=== PATIENT | female | born 1985 | race Caucasian/White ===

== ENCOUNTER 2016-09-26 12:24 | Emergency (ER) | payer OTHER ==
[~2016-09-26] VITALS: Ht 162.6 cm; Wt 68.9 kg
[~2016-09-26 12:24] MED LIST: BACLOFEN10 M1 PO; DOXYCYCLINE MO100 MG PO; FIORICET 325 MG1 TAB PO; IBUPROFEN600 M1 PO; PERCOCET 325 MG1 TA2 PO
[2016-09-26 12:30] VITALS: BP 128/83
--- NOTE | 2016-09-26 13:06 | ED GENERAL ADULT ---
History of Present Illness General Chief Complaint: General Adult Stated Complaint: BACK APAIN/BLOOD IN STOOL Source: patient Exam Limitations: no limitations Vital Signs & Intake/Output Vital Signs & Intake/Output Vital Signs Date Time Temp Pulse Resp B/P Pulse O2 O2 Flow FiO2 Ox Delivery Rate 09/26 1230 96.8 103 16 128/83 96 Room Air Allergies Coded Allergies: doxycycline (Severe, SWELLING 11/11/15) Reconcile Medications Alprazolam 0.5 MG TABLET 1 TAB PO BIDP PRN ANXIETY (Reported) Escitalopram Oxalate 20 MG TABLET 1 TAB PO DAILY DEPRESSION (Reported) Triage Note: PT STATES SHE WOKE THIS AM AND WAS HAVING LEFT LOWER BACK PAIN THAT COMES AND GOES. PT STATES WHEN SHE BREATHS IN IT HURTS WORSE. PT STATES SHE MOVED HER BOWELS AND SHE HAD A LOT OF BLOOD IN HER STOOL. PT STATES THIS HAS NEVER HAPPEND TO HER BEFORE. PT STATES SHE HAS BEEN CONSTIPATED PRIOR TO THIS EPISODE. Triage Nurses Notes Reviewed? yes Onset: Abrupt Duration: constant Timing: single episode today Injury Environment: home Severity: severe Severity Numbers: 7 : No Patient currently breastfeeds: No HPI: Patient is a 31-year-old female with a past medical history of mood disorder and anxiety who presents emergency room saying that today she woke up in her normal state of health patient had an acute onset of left-sided back pain that is made worse with deep inhalation and lumbar spine movements. Patient states that she' s had back pain in the past however nothing significant. Patient denies any mechanism of injury. Patient also states that she has a history of constipation however nothing in the last 2 weeks and states that today after having a bowel movement she noted bright red blood passing. Patient has not had a bowel movement since. Denies any history of bright red blood from passing stool. Denies any fever, chills, lightheaded sensation chest pain cough nausea vomiting abdominal pain vaginal bleeding vaginal discharge dysuria or hematuria. Patient did not take any medications for symptoms (AUDREY HANSEN,LAUREN) Past History Travel History Traveled to [place] past 21 day No Medical History Any Pertinent Medical History? 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 No (LAUREN CAVAZOS) Review of Systems Review of Systems Constitutional: Reports: no symptoms. EENTM: Reports: no symptoms. Respiratory: Reports: no symptoms. Cardiovascular: Reports: no symptoms. GI: Reports: see HPI, bloody stool. Denies: abdominal pain. Genitourinary: Reports: see HPI. Musculoskeletal: Reports: see HPI, back pain. Skin: Reports: no symptoms. Neurological/Psychological: Reports: no symptoms. Hematologic/Endocrine: Reports: no symptoms. Immunologic/Allergic: Reports: no symptoms. All Other Systems: Reviewed and Negative (LAUREN CAVAZOS) Physical Exam Physical Exam General Appearance: no apparent distress, alert Comments: Well-developed well-nourished person in no acute distress HEENT: Normal EENT exam, . Neck: Supple, no lymphadenopathy, normal range of motion without pain or tenderness Back: Normal inspection, left lateral paralumbar muscular point tenderness noted , mild decreased active range of motion noted with pain upon side bending and flexion Cardiovascular: Regular rate and rhythms no murmurs rubs or gallops, normal JVP Respiratory: Chest nontender. No respiratory distress.breath sounds clear to auscultation bilaterally Abdomen: Soft, nontender nondistended, no appreciable organomegaly. Normal bowel sounds. No ascites Extremity: No edema, no calf tenderness to palpation, normal and equal pulses. Bilateral lower extremity myotomes dermatomes intact Neuro: Alert oriented x3, motor sensory normal, Skin: No appreciable rash on exposed skin, skin is warm and dry. Psych: Mood and affect is normal, memory and judgment is normal. note that the rectal exam was performed by Kate Mccoy PA-C and which she states that there was normal external rectal exam no hemorrhoids rectal tone was intact patient had brown stool noted in heme negative stool fecal No blood Core Measures ACS in differential dx? No CVA/TIA Diagnosis: No Severe Sepsis Present: No Septic Shock Present: No (LAUREN CAVAZOS) Progress Differential Diagnoses I considered the following diagnoses in my evaluation of the patient: [Lumbar strain, kidney stone, diverticulosis, diverticulitis, GI bleed, hemorrhoids, anal fissure, rectal abscess, small bowel obstruction] Plan of Care: Orders Procedure Date/time Status URINE 09/26 1252 Complete URINALYSIS 09/26 1252 Complete Laboratory Tests 09/26/16 1255: Urine Color YEL, Urine Clarity CLEAR, Urine pH 7.0, Ur Specific Purdy 1.020, Urine Protein NEG, Urine Ketones NEG, Urine Nitrite NEG, Urine Bilirubin NEG, Urine Urobilinogen 0.2, Ur Leukocyte Esterase NEG, Ur Microscopic EXAM NOT REQUIRED, Urine Hemoglobin NEG, Urine Glucose NEG, Urine Test NEGATIVE Currently on examination patient was in no apparent distress. Nontender abdomen noted on exam. Patient had unremarkable rectal exam and no current active bleeding noted. Patient had unremarkable urine analysis and had reproducible pain upon lumbar spine movements. Upon discharge patient looks well no apparent distress and will comply with discharge instructions and had no questions (LAUREN CAVAZOS) Initial ED EKG: none (LAUREN CAVAZOS) Departure Departure Disposition: HOME OR SELF CARE Condition: Stable Clinical Impression Primary Impression: Low back strain Secondary Impressions: Blood in stool Referrals: PAIGE HICKMAN DO (PCP/Family) AUSTIN WILLETT,SINDI Yuen Additional Instructions: As discussed begin icing the area directly 20 minutes every 2 hours Begin the prescription and ketorolac for pain and inflammation prescription is waiting at [facility] pharmacy. Follow-up with your primary care doctor if your back pain still continues in 5 days. If symptoms worsen return to emergency room. If bleeding reoccurs follow up and establish gastrin drawl is Dr. AVILA. Departure Forms: Customer Survey General Discharge Information (LAUREN CAVAZOS) PA/TRANSPORTATION DRIVER Co-Sign Statement Statement: ED Attending supervision documentation- [] I saw and evaluated the patient. I have also reviewed all the pertinent lab results and diagnostic results. I agree with the findings and the plan of care as documented in the PA's/TRANSPORTATION DRIVER's documentation. x I have reviewed the ED Record and agree with the PA's/TRANSPORTATION DRIVER's documentation. [] Additions or exceptions (if any) to the PAs/TRANSPORTATION DRIVER's note and plan are summarized below: [] (TAMIA WILLETT,TIN) Critical Care Note Critical Care Note Critical Care Time: non-applicable (LAUREN CAVAZOS)
[2016-09-26] MEDS ORDERED: KETOROLAC TROME10 M1 PO (13:39)
[2016-09-26] MEDS ORDERED: ALPRAZOLAM0.5 M4 PO (13:47)
[2016-09-26] MEDS ORDERED: ESCITALOPRAM OX20 MG PO (13:47)
== END 2016-09-26 14:26 ==
LOC: ERH 12:24
DX: S39.012A Strain of muscle, fascia and tendon of lower back, initial encounter (principal); K92.1 Melena; X58.XXXA Exposure to other specified factors, initial encounter
CPT/HCPCS: 81003; 81025; 96372; J1885

== ENCOUNTER 2016-11-12 08:47 | Emergency (ER) | payer OTHER ==
[~2016-11-12] VITALS: Ht 165.1 cm; Wt 69.4 kg
[~2016-11-12 08:47] MED LIST changes: +ALPRAZOLAM0.5 M4 PO; +ESCITALOPRAM OX20 MG PO; +KETOROLAC TROME10 M1 PO
--- NOTE | 2016-11-12 08:58 | ED UPPER/LOWER EXTREMITY COMPL ---
History of Present Illness General Chief Complaint: Hand or Wrist Injury Stated Complaint: R ARM INJURY Source: patient Exam Limitations: no limitations Vital Signs & Intake/Output Vital Signs & Intake/Output Vital Signs Date Time Temp Pulse Resp B/P B/P Pulse O2 O2 Flow FiO2 Mean Ox Delivery Rate 11/12 0854 97.4 87 16 118/79 97 Room Air Allergies Coded Allergies: doxycycline (Severe, SWELLING 11/11/15) Triage Note: 31 Y/O FEMALE C/O R ARM PAIN, "IT SHOOTS FROM MY NECK INTO MY FINGERS" AND IT GOES NUMB. STATES PAIN HAS BEEN X 12 DAYS. DENIES INJURIES OR TRAUMA. PT STATES HER DOCTOR TOLD HER TO GET AN XRAY AND GAVE HER A FORM FOR A WRIST SPLINT HOWEVER PT HAS NOT GOTTEN SPLINT YET. HAS BEEN TAKING IBUPROPHEN WITH NO RELIEF. TOOK 600MG IBUPROPHEN APPROX 1 HOUR AGO. Triage Nurses Notes Reviewed? yes Onset: Gradual Duration: day(s): (12) Timing: no prior history Severity: moderate Severity Numbers: 8 Pain/Injury Location: Right: Shoulder, Elbow, Wrist. Method of Injury: unknown Modifying Factors: Improves With: immobilization. Worsens With: movement. : No Patient currently breastfeeds: No HPI: Patient is a 28-year-old female presenting to the emergency department with chief complaint of intermittent right shoulder, right elbow and right wrist pain this tingling on and off for the past 12 days. Patient reports that she gets numbness and tingling intermittently in her wrist. Today it's her wrist mostly, saw her primary care physician who gave her a wrist splint which is not working. Patient reports that her doctor said she was then set her up for x-rays but she didn't know where to go she came to the emergency department. Denies any chest pain or palpitations. Denies any increased stress. She is right hand dominant. Pain is worse with movement. No relief with ibuprofen that she is taking at home. Last dose was approximately 2 hours ago. Denies any nausea vomiting fevers or chills. Denies any history of neck injury or pain. She does report (DOT VICTORIA) Reconcile Medications Alprazolam 0.5 MG TABLET 1 TAB PO BIDP PRN ANXIETY (Reported) Escitalopram Oxalate 20 MG TABLET 1 TAB PO DAILY DEPRESSION (Reported) Methocarbamol (Robaxin) 500 MG TABLET 1 TAB PO TID PRN muscle spasms Tylenol With Codeine (Tylenol With Codeine #3 Tablet) 300 MG-30 MG TABLET 1 TAB PO BIDP PRN pain (PALMER WILLETT,AUGUSTINE) Past History Travel History Traveled to [place] past 21 day No Medical History Any Pertinent Medical History? 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 No (DOT VICTORIA) Review of Systems Review of Systems Constitutional: Reports: no symptoms. Comments Review of systems: See HPI, All other systems negative. Constitutional, no chills fever or weight loss HEENT: No visual changes no sore throat no congestion Cardiovascular: No chest pain ,palpitation Skin, no jaundice no rashes Respiratory: No dyspnea cough sputum or hemoptysis GI: No nausea no vomiting : No dysuria No hematuria Muscle skeletal: no back pain, no neck pain, Neurologic: no confusion Psych: No incerased stress anxiety or depression,. Heme/endocrine: No bruising no bleeding no polyuria or polydipsia Immunology: No splenectomy or history of AIDS (DOT VICTORIA) Physical Exam Physical Exam General Appearance: well developed/nourished, alert, anxious, tearful Comments: Well-developed well-nourished person in no acute distress HEENT: Pupils equally round and reactive to light and accommodation. Nose is atraumatic. Neck: Supple, no lymphadenopathy, normal range of motion without pain or tenderness, tender to palpation over the right trapezius muscle. Back: Nontender, Full range of motion Cardiovascular: Regular rate and rhythms no murmurs rubs or gallops, normal JVP Respiratory: No respiratory distress Extremity: No edema, radial pulses are 2+ bilaterally. Tender to palpation over the distal radius and distal ulna. Positive Phalen test. Positive Tinel test. Pain with right wrist ulnar and radial deviation. Full range of motion of right shoulder without difficulty or pain. Mild tenderness to palpation over the right bicep tendon. Full range of motion of right olecranon. Mild tenderness to palpation over the lateral aspect of the right olecranon. Able to supinate and pronate the right wrist without difficulty or pain. Adapted Physical Education Specialist strength is equal and symmetric bilaterally. Capillary refill is intact in upper extremities bilaterally. Radial pulses are 2+ bilaterally. Full range of motion of left upper extremity without difficulty or pain. Neuro: Alert oriented x3, motor sensory normal in upper extremities bilaterally. Skin: No appreciable rash on exposed skin, skin is warm and dry. Psych: Mood and affect is normal, memory and judgment is normal. (CORTNEY HANSEN,DOT) Progress Differential Diagnosis: contusion, dislocation, fracture, sprain, tendon injury Plan of Care: Orders Procedure Date/time Status XRY-WRIST COMPLETE-RIGHT 11/12 906 Active XRY-ELBOW, AP & LATERAL, RIGHT 11/12 906 Active XRY-CERV SPINE 4 OR 5 VIEWS 11/12 906 Active Diagnostic Imaging: Viewed by Me: Radiology Read. Discussed w/RAD: Radiology Read. Radiology Impression: PATIENT: KHAI WHITMAN PRESENT AGE: 31 PATIENT ACCOUNT NO: [id number] : 87 LOCATION: [facility] ORDERING PHYSICIAN: DOT HANSEN SERVICE DATE: 11/12/16 EXAM TYPE: RAD - XRY-CERV SPINE 4 OR 5 VIEWS; XRY-ELBOW, AP & LATERAL, RIGHT; XRY- WRIST COMPLETE-RIGHT EXAMINATION: XR CERVICAL SPINE, AND ELBOW, WRIST, RIGHT. CLINICAL INFORMATION: Pain status post injury. COMPARISON: None TECHNIQUE: 5 views cervical spine, 2 views of the right elbow. 4 views right wrist FINDINGS: Cervical: Bone mineral density, vertebral body height, and alignment is maintained without evidence of acute fracture or dislocation. There is straightening of the normal cervical lordosis with a subtle convex right cervical, convex left upper thoracic curve suggesting underlying spasm. No focal destructive or sclerotic osseous lesions are seen. Disc and joint space height is maintained without productive or erosive changes. Right elbow: Bone mineral density is maintained without evidence of fracture or dislocation. No focal osseous lesions are seen. Joint space is maintained without productive or erosive changes. Right wrist: Bone mineral density is maintained without evidence of fracture or dislocation. No focal osseous lesions are seen. Joint space is maintained without productive or erosive changes. IMPRESSION: Straightening of the cervical lordosis suggesting underlying spasm without soft tissue edema to suggest fracture or ligamentous strain. Otherwise unremarkable examinations. (DOT VICTORIA) Departure Departure Time of Disposition: 957 Disposition: HOME OR SELF CARE Condition: Stable Clinical Impression Primary Impression: Radicular pain Secondary Impressions: Carpal tunnel syndrome Qualifiers: Laterality: right Qualified Code: G56.01 - Carpal tunnel syndrome, right upper limb Muscle spasm Referrals: PAIGE HICKMAN DO (PCP/Family) SINDI JENNINGS MD Additional Instructions: Follow-up with your primary care physician call to make an appointment. continue using brace as previously directed. Continue using ibuprofen as previously indicated. For severe pain take Tylenol with Codeine. Return for worsening symptoms or concerns. You may need MRI if symptoms persist or worsen. Anti-inflammatories such as ibuprofen over the course of several days will help reduce inflammation and further improve your symptoms. Departure Forms: Customer Survey General Discharge Information Prescriptions: Current Visit Scripts Tylenol With Codeine (Tylenol With Codeine #3 Tablet) 1 TAB PO BIDP PRN pain #10 TAB Methocarbamol (Robaxin) 1 TAB PO TID PRN muscle spasms #10 TAB (DOT VICTORIA) PA/KETTLE COOK Co-Sign Statement Statement: ED Attending supervision documentation- [] I saw and evaluated the patient. I have also reviewed all the pertinent lab results and diagnostic results. I agree with the findings and the plan of care as documented in the PA's/KETTLE COOK's documentation. [X] I have reviewed the ED Record and agree with the PA's/KETTLE COOK's documentation. [] Additions or exceptions (if any) to the PAs/KETTLE COOK's note and plan are summarized below: [] (PALMER WILLETT,AUGUSTINE)
[2016-11-12] MEDS ORDERED: TYLENOL WITH C1 EACH PO (09:49)
--- NOTE | 2016-11-12 09:57 | RADIOLOGY REPORT ---
EXAMINATION: XR CERVICAL SPINE, AND ELBOW, WRIST, RIGHT. CLINICAL INFORMATION: Pain status post injury. COMPARISON: None TECHNIQUE: 5 views cervical spine, 2 views of the right elbow. 4 views right wrist FINDINGS: Cervical: Bone mineral density, vertebral body height, and alignment is maintained without evidence of acute fracture or dislocation. There is straightening of the normal cervical lordosis with a subtle convex right cervical, convex left upper thoracic curve suggesting underlying spasm. No focal destructive or sclerotic osseous lesions are seen. Disc and joint space height is maintained without productive or erosive changes. Right elbow: Bone mineral density is maintained without evidence of fracture or dislocation. No focal osseous lesions are seen. Joint space is maintained without productive or erosive changes. Right wrist: Bone mineral density is maintained without evidence of fracture or dislocation. No focal osseous lesions are seen. Joint space is maintained without productive or erosive changes. IMPRESSION: Straightening of the cervical lordosis suggesting underlying spasm without soft tissue edema to suggest fracture or ligamentous strain. Otherwise unremarkable examinations.
[2016-11-12] MEDS ORDERED: ROBAXIN500 M1 PO (09:59)
[2016-11-12 10:03] VITALS: BP 120/80
== END 2016-11-12 10:10 ==
LOC: ERH 08:47
DX: M54.10 Radiculopathy, site unspecified (principal); G56.01 Carpal tunnel syndrome, right upper limb; M25.521 Pain in right elbow
CPT/HCPCS: 72050; 73070-RT; 73110-RT; J1885

== ENCOUNTER 2016-12-24 10:54 | Emergency (ER) | payer OTHER ==
[~2016-12-24] VITALS: Ht 165.1 cm; Wt 70.3 kg
[~2016-12-24 10:54] MED LIST changes: +ROBAXIN500 M1 PO; +TYLENOL WITH C1 EACH PO
[2016-12-24] MEDS ORDERED: AMOXICILLIN875 M1 PO (11:27)
--- NOTE | 2016-12-24 11:31 | ED CARDIAC/CP/PALPITATIONS ---
History of Present Illness General Chief Complaint: General Adult Stated Complaint: LEFT SIDE RIB CAGE PAIN SINCE YESTERDAY Source: patient, old records Exam Limitations: no limitations Vital Signs & Intake/Output Vital Signs & Intake/Output Vital Signs Date Time Temp Pulse Resp B/P B/P Pulse O2 O2 Flow FiO2 Mean Ox Delivery Rate 12/24 1308 97.5 84 18 110/71 100 Room Air 12/24 1115 98.2 89 20 102/70 99 Room Air Allergies Coded Allergies: doxycycline (Severe, SWELLING 11/11/15) Reconcile Medications Amoxicillin 875 MG TABLET 1 TAB PO BID ANTIBIOTIC, INFECTION (Reported) Cyclobenzaprine HCl 5 MG TABLET 1 TAB PO TIDPRN PRN PAIN Escitalopram Oxalate 20 MG TABLET 1 TAB PO DAILY DEPRESSION (Reported) Triage Note: LEFT SIDE PAIN THAT RUNS FROM UNDER LEFT ARM TO LEFT BREAST SINCE YESTERDAY AFTERNOON. STATES PAIN WHEN SHE COUGHS. DENIES INJURY Triage Nurses Notes Reviewed? yes Onset: Gradual Duration: day(s): (2), intermittent, waxing and waning Timing: recent history Quality/Severity: mild, moderate Location: l sided Radiation: back Activities at Onset: s/p opening a window Aspirin Today: no aspirin today : No Patient currently breastfeeds: No HPI: 31-year-old female with no medical history presents to ER complaining of left- sided chest wall pain in her axilla radiating around into her left breast and into her back for the past 2 days after she opened a window. The patient denies any known specific injury or trauma are states the pain is worse with palpation moving her arm changing position and coughing. No shortness of breath hemoptysis no pain with inspiration. She took Tylenol yesterday without improvement there is no other injury noted on pain nausea vomiting or diarrhea. She smokes denies alcohol use or drug use Past History Travel History Traveled to [place] past 21 day No Medical History Any Pertinent Medical History? 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 No Review of Systems Review of Systems Constitutional: Reports: see HPI. All Other Systems: Reviewed and Negative Comments Review of systems: See HPI, All other systems negative. Constitutional, no chills no fever, no malaise HEENT: No visual changes no sore throat no congestion, Cardiovascular: chest pain , no palpitation Skin: no rashes, no change in skin Respiratory: No dyspnea no cough no sputum GI: No nausea no vomiting, no diarrhea, no bloating/constipation : No dysuria Muscle skeletal: No joint pain, no joint swelling, no back pain, no neck pain, Neurologic: No numbness no headache Psych: No stress Heme/endocrine: No bruising Immunology: No lymphadenopathy Physical Exam Physical Exam General Appearance: well developed/nourished, no apparent distress, alert, comfortable Cardiovascular: regular rate/rhythm Comments: Well-developed well-nourished person in no acute distress HEENT: Normal EENT exam; PERRL, EOMI, no nystagmus. HEAD is atraumatic. moist mucous membranes. Neck: Supple, normal range of motion Back: Nontender, no CVA tenderness. Full range of motion Cardiovascular: Regular rate and rhythms no murmurs rubsnormal JVP Respiratory: Chest tender.There were no bony deformities, no asymmetry. No respiratory distress. Patient speaking in full complete sentences. Breath sounds clear to auscultation bilaterally: NO W/R/R Abdomen: Soft, nontender nondistended, . Extremity: No edema, full range of motion of extremitie Neuro: Alert oriented x3, motor sensory normal, There were no obvious focal neurologic abnormalities. Skin: No appreciable rash on exposed skin, skin is warm and dry. Psych: Mood and affect is normal, memory and judgment is normal. Core Measures ACS in differential dx? No Severe Sepsis Present: No Septic Shock Present: No All Positive = PERC Ruled Out: Positive: age < 50 years, heart rate < 100 bpm, O2 sat > 94%, no hemoptysis, no hormone use, no prior DVT or PE, no unilateral leg swellin, no surgery/trauma w/ in 4w. Progress Differential Diagnosis: AMI, musculoskeletal pain, myocarditis, pancreatitis, pericarditis, pneumonia, pneumothorax, pulmonary embolism Plan of Care: Orders Procedure Date/time Status TROPONIN LEVEL 12/24 1138 Complete LIPASE 12/24 1137 Complete HUMAN BETA HCG SCREEN 12/24 1137 Complete COMPREHENSIVE METABOLIC PANEL 12/24 1137 Complete CBC WITHOUT DIFFERENTIAL 12/24 1137 Complete EKG 12/24 1137 Active Laboratory Tests 12/24/16 1156: Anion Gap 9, Estimated GFR > 60, BUN/Creatinine Ratio 23.3, Glucose 87, Calcium 9.2, Total Bilirubin 0.5, AST 19, ALT 45, Alkaline Phosphatase 50, Troponin I < 0.01, Total Protein 6.9, Albumin 4.3, Globulin 2.6, Albumin/Globulin Ratio 1.7, Lipase 129, Total Beta HCG NEGATIVE, CBC w Diff NO MAN DIFF REQ, RBC 4.27, MCV 92.0, MCH 30.6, RDW 13.1, MPV 7.9, Gran % 51.8, Lymphocytes % 32.5, Monocytes % 4.2, Eosinophils % 10.3 H, Basophils % 1.2, Absolute Granulocytes 6.2, Absolute Lymphocytes 3.9 H, Absolute Monocytes 0.5, Absolute Eosinophils 1.2, Absolute Basophils 0.1, PUBS MCHC 33.2 Pain is reproduced with palpation, PERC SCORE 0, CASE d/w dr pablo agrees with plan symptoms are consistent with muscle strain. Patient has been asymptomatic here I discussed with the patient at length all of their results. I had an extensive conversation regarding need for close follow up with their primary care physician this week as well as return precautions. I answered all of their questions, they feel comfortable with the plan and follow-up care. I discussed with the patient/family the medications that they will receive. I gave them signs and symptoms that could indicate an adverse reaction. I have advised them to limit their activities until they can see how they respond to the medication. (FANI HANSEN,LAUREN) Diagnostic Imaging: Viewed by Me: Radiology Read. Discussed w/RAD: Radiology Read. Radiology Impression: PATIENT: KHAI WHITMAN PRESENT AGE: 31 PATIENT ACCOUNT NO: [id number] : 87 LOCATION: [facility] ORDERING PHYSICIAN: LAUREN HANSEN SERVICE DATE: 12/24/16 EXAM TYPE: RAD - XRY-RIBS UNILATERAL-LEFT EXAMINATION: XR RIBS, LEFT CLINICAL INFORMATION: Left-sided pain. COMPARISON: None TECHNIQUE: PA chest x-ray, 2 views of the left ribs were obtained. FINDINGS: Lungs are clear. No consolidation, pneumothorax, or pleural effusion. The cardiomediastinal silhouette and pulmonary vasculature are normal. Osseous structures are unremarkable. Ribs are intact. No fractures are identified. IMPRESSION: Unremarkable examination. DICTATED BY: ARIELLA VILLALOBOS MD DATE/TIME DICTATED:12/24/161312 MACHINE STAPLER:MARYELLEN DATE/TIME TRANSCRIBED:12/24/161312 CONFIDENTIAL, DO NOT COPY WITHOUT APPROPRIATE AUTHORIZATION. <Electronically signed in Other Vendor System> SIGNED BY: ARIELLA VILLALOBOS MD 12/24/16 1318 Initial ED EKG: normal intervals, normal p-waves, normal QRS complex, normal sinus rhythm (70) Departure Departure Time of Disposition: 1305 Disposition: HOME OR SELF CARE Condition: Stable Clinical Impression Primary Impression: Muscle strain Referrals: PAIGE HICKMAN DO (PCP/Family) Additional Instructions: REST, HEATING PADS,INTERCHANGE TYLENOL AND MOTRIN FOR PAIN. FLEXERIL DIRECTED. THIS WAS SENT TO [facility]. THIS MAY MAKE YOU DROWSY. NO DRIVING OR DRINKING ALCOHOL WIHLE TAKING.FOLLOW UPWITH YOUR PMD ONMONDAY, RETURN WITH ANY CONCERNS Departure Forms: Customer Survey General Discharge Information Prescriptions: Current Visit Scripts Cyclobenzaprine HCl 1 TAB PO TIDPRN PRN PAIN #12 TAB Critical Care Note Critical Care Note Critical Care Time: non-applicable
[2016-12-24 12:05] LABS: ABSOLUTE BASOPHIL COUNT 0.1 /CUMM (0.0-0.2); ABSOLUTE EOSINOPHIL COUNT 1.2 /CUMM (0.0-0.7); ABSOLUTE GRANULOCYTE CT 6.2 /CUMM (1.4-6.5); ABSOLUTE LYMPH COUNT 3.9 /CUMM (1.2-3.4); ABSOLUTE MONOCYTE COUNT 0.5 /CUMM (0.10-0.60); BASOPHIL % 1.2 % (0.0-2.0); EOSINOPHIL % 10.3 % (0-5); GRANULOCYTE % 51.8 % (42.2-75.2); HEMATOCRIT 39.3 % (37-47); MEAN CORPUSCULAR HGB 30.6 PG (27.0-31.0); MEAN CORPUSCULAR HGB CONC 33.2 G/DL (33.0-37.0); MEAN PLATELET VOLUME 7.9 FL (7.4-10.4); PLATELET COUNT 244 /CUMM (130-400); RBC DISTRIBUTION WIDTH 13.1 % (11.5-14.5); RED BLOOD CELL CT 4.27 /CUMM (4.20-5.40)
[2016-12-24] MEDS ORDERED: CYCLOBENZAPRINE5 M2 PO (13:07)
[2016-12-24 13:08] VITALS: BP 110/71
--- NOTE | 2016-12-24 13:18 | RADIOLOGY REPORT ---
EXAMINATION: XR RIBS, LEFT CLINICAL INFORMATION: Left-sided pain. COMPARISON: None TECHNIQUE: PA chest x-ray, 2 views of the left ribs were obtained. FINDINGS: Lungs are clear. No consolidation, pneumothorax, or pleural effusion. The cardiomediastinal silhouette and pulmonary vasculature are normal. Osseous structures are unremarkable. Ribs are intact. No fractures are identified. IMPRESSION: Unremarkable examination.
== END 2016-12-24 13:20 ==
LOC: ERH 10:54
PROVIDERS: Physician Assistant Medical
DX: S29.011A Strain of muscle and tendon of front wall of thorax, initial encounter (principal); X50.0XXA Overexertion from strenuous movement or load, initial encounter; Y93.89 Activity, other specified; Y92.9 Unspecified place or not applicable
CPT/HCPCS: 71100-LT; 93005; 93010